=== PATIENT | female | born 1940 | race Caucasian/White ===

== ENCOUNTER 2020-11-10 12:31 | Emergency (ER) | payer OTHER, MEDICARE, BC ==
[~2020-11-10] VITALS: Ht 160 cm; Wt 117.9 kg
[2020-11-10] MEDS ORDERED: Voltaren100 GM TOP (15:06)
[2020-11-10] MEDS ORDERED: CYCL10 PO (15:06)
== END 2020-11-10 15:16 | disposition home or self-care (01) ==
LOC: ER 12:31
DX: M54.42 Lumbago with sciatica, left side (principal); Z88.6 Allergy status to analgesic agent; Z88.5 Allergy status to narcotic agent
CPT/HCPCS: 96372; 99283-25; A9270; J1885

== ENCOUNTER 2020-11-26 12:01 | Inpatient (IN) | payer OTHER ==
[~2020-11-26] VITALS: Ht 160 cm; Wt 123.8 kg
[~2020-11-26 12:01] MED LIST: CYCL10 PO; Voltaren100 GM TOP
[2020-11-26 13:10] LABS: BASOPHILS ABSOLUTE AUTO 0.04 K/mm3 (0.00-0.23); BASOPHILS PERCENT AUTO 0 % (0-2); EOSINOPHILS ABSOLUTE AUTO 0.08 K/mm3 (0.00-0.68); EOSINOPHILS PERCENT AUTO 1 % (0-6); Hematocrit 47.5 % (33.0-51.0); Hemoglobin 15.1 g/dL (11.5-16.0); IMMATURE GRAN ABSOLUTE AUTO 0.08 K/mm3 (0.00-0.10); IMMATURE GRAN PERCENT AUTO 1 % (0-1); LYMPHOCYTES ABSOLUTE AUTO 0.69 K/mm3 (0.84-5.20); LYMPHOCYTES PERCENT AUTO 5 % (21-46); MONOCYTES ABSOLUTE AUTO 0.72 K/mm3 (0.16-1.47); MONOCYTES PERCENT AUTO 5 % (4-13); Mean Corpuscular HGB 29.4 pg (26.0-34.0); Mean Corpuscular HGB Conc 31.8 g/dL (31.5-36.5); Mean Corpuscular Volume 92 fL (80-100); Mean Platelet Volume 9.9 fL (9.1-12.4); NEUTROPHILS PERCENT AUTO 90 % (41-73); Platelet Count 295 K/mm3 (150-400); RDW Coefficient Variation 14.9 % (11.7-14.2); RDW Standard Deviation 51.5 fL (35.1-46.3); Red Blood Cell Count 5.14 M/mm3 (3.80-5.20); White Blood Cell Count 15.41 K/mm3 (4.00-11.30)
[2020-11-26 13:20] LABS: Alanine Aminotransfer (ALT/SGP 29 U/L (12-78); Albumin, Blood 3.2 g/dL (3.4-5.0); Albumin/Globulin Ratio 0.8 (0.8-1.8); Alk Phos 116 U/L (50-136); Anion Gap 5 mmol/L (6-16); Aspartate Aminotrans (AST/SGOT 18 U/L (12-37); Blood Urea Nitrogen 15 mg/dL (8-24); Bun/Creatinine Ratio 22.8 (12.0-20.0); CO2, Blood 26 mmol/L (21-32); Calcium, Blood 8.5 mg/dL (8.5-10.1); Chloride, Blood 110 mmol/L (98-108); Creatinine, Blood 0.66 mg/dL (0.40-1.00); Globulin, Blood 3.8 g/dL (2.2-4.0); Glomerular Filtration Rate >60 (60-); Glucose, Blood 85 mg/dL (70-99); Potassium, Blood 3.7 mmol/L (3.5-5.5); Sodium, Blood 141 mmol/L (136-145)
[2020-11-26] MEDS ORDERED: SYMBICORT 160-4.6 GM INH (13:31)
[2020-11-26] MEDS ORDERED: ALBU2.5V5 NEB (13:31)
[2020-11-26] MEDS ORDERED: FLUO10 PO (13:32)
[2020-11-26] MEDS ORDERED: DABI150C PO (13:32)
[2020-11-26] MEDS ORDERED: EXEM25 PO (13:32)
[2020-11-26] MEDS ORDERED: FURO40 PO (13:33)
[2020-11-26] MEDS ORDERED: METO50ER PO (13:33)
[2020-11-26] MEDS ORDERED: LEVSOD75 PO (13:33)
[2020-11-26] MEDS ORDERED: PRAV20 PO (13:34)
[2020-11-26] MEDS ORDERED: POTA10T PO (13:34)
[2020-11-26] MEDS ORDERED: TRAM50 PO (13:35)
[2020-11-26] MEDS ORDERED: SPIR25 PO (13:35)
[2020-11-26 16:51] LABS: Source, Urine Clean Catch
[2020-11-26 16:56] LABS: Appearance, Urine Hazy (Clear); Bilirubin, Urine Neg (Neg); Blood, Urine 1+ (Neg); Color, Urine Yellow (P-Yellow); Glucose Qualitative, Urine Neg (Neg); Ketones, Urine 1+ (Neg); Leukocyte Esterase, Urine 2+ (Neg); Nitrite, Urine Neg (Neg); Protein, Urine 2+ (Neg); Urobilinogen, Urine NORM (Normal)
[2020-11-26 17:06] LABS: Bacteria Many /hpf; Red Blood Cells, Urine 0-2 /hpf (0-2); Squamous Epithelial Cells Mod /hpf (Few); Transitional Epithelial Cells Rare /hpf (0-Rare)
[2020-11-26] MEDS ORDERED: Voltaren100 GM TOP (17:43)
[2020-11-26] MEDS ORDERED: CYCL10 PO (17:43)
--- NOTE | 2020-11-26 23:10 | NUR ---
PATIENT IS ALERT AND ORIENTATED, ABLE TO MAKE NEEDS KNOWN, ONE PERSON ASSIST TO BEDSIDE COMMODE, PIV IN R-HAND RUNNING DILTIZEM 10MG/HR HEART RATE 118-140'S NOTED INCREASE WITH MOBILITY WITH SOB, INCREASED TO 15MG/HR HR MAINTAINING AT 98-103. PATIENT EXPRESSED THAT SHE HASN'T BEEN TAKING HER MEDICATIONS, RECENTLY MOVED HERE FROM [place] HER SON NADINE LOST THE HOUSE TO MOVE IN WITH [employer]A [employer] FRIEND, CURRENTLY THERE IS SIX PEOPLE LIVING IN THE HOME WITH ONE BATHROOM, FOUR DOGS, AND TWO CATS, BIPOLAR PERSON WHO CAN MAKE THINGS UNCOMFORTABLE BUT NOT CONCERNED FOR HER SAFETY, HIGH FUNCTIONING YOUNGER SON WHO HAS AUTISM. PATIENT LOST HER FIVE MONTHS AGO AND RECENTLY HAD TO PUT HER HUSBANDS DOG DOWN. PATIENT IS VERY ANXIOUS AND RELIES ON HER SON NADINE TO HELP WITH HER TOLIETING NEEDS, SHE USES A WHEELCHAIR AT [employer]. SHE IS CONCERNED ABOUT HER SON WITH ALL THE LOSS OF HOME, FATHER AND DOG WITH HER BEING IN THE HOSPITAL, SHE IS INVOLVED WITH HER EROS AND HAS A HOUSE RN THAT CALLS TO CHECK ON HER. SHE HAS BEEN WAITING FOR HER [facility]CT[facility] HER POSSIBLING NEEDING ASSISTANCE WITH HOUSING AND SHE FEARS SHE MAY NEED TO GO INTO AN [facility]PER[facility] LIVING FACILITY BUT WORRIES WHAT WILL HAPPEN TO HER SON. SHE IS INTERESTED IN GETTING INTO CONTACT WITH [facility] AND STATE THEY WERE WORKING WITH HER ALREADY BUT NOTHING YET ON HOUSING NEEDS. PATIENT SAYS HER WHEELCHAIR BARELY CAN GO THROUGH MANY OF THE DOORWAYS AND SITS IN HER RECLINER MAINLY THE WHOLE TIME, SHE WAS PROVIDED A MATTRESS ON THE FLOOR TO SLEEP ON BUT IT IS OLD AND DIFFICULT FOR HER, SHE ASKED IF SHE COULD REPLACE IT BUT THE PIE CHEF WAS CONCERNED ABOUT GETTING RID OF THE CURRENT MATTRESS, PATIENT IS MORE CALM AFTER REASSURANCE, WILL CONTINUE TO PROVIDE HOLISTIC CARE AND ACTIVE LISTENTING TO DECREASE ANXIETY, RECEIVED A NEW ORDER FOR CPAP PATIENT USES ONE AT HOME, CONTINUOUS POLST OXIMETRY AND HYDOXYZINE 50MG Q8 PRN.
[2020-11-27 04:04] LABS: BASOPHILS ABSOLUTE AUTO 0.04 K/mm3 (0.00-0.23); BASOPHILS PERCENT AUTO 0 % (0-2); EOSINOPHILS ABSOLUTE AUTO 0.24 K/mm3 (0.00-0.68); EOSINOPHILS PERCENT AUTO 2 % (0-6); Hematocrit 44.8 % (33.0-51.0); Hemoglobin 14.5 g/dL (11.5-16.0); IMMATURE GRAN ABSOLUTE AUTO 0.05 K/mm3 (0.00-0.10); IMMATURE GRAN PERCENT AUTO 0 % (0-1); LYMPHOCYTES PERCENT AUTO 6 % (21-46); MONOCYTES ABSOLUTE AUTO 0.79 K/mm3 (0.16-1.47); MONOCYTES PERCENT AUTO 6 % (4-13); Mean Corpuscular HGB 29.5 pg (26.0-34.0); Mean Corpuscular HGB Conc 32.4 g/dL (31.5-36.5); Mean Corpuscular Volume 91 fL (80-100); Mean Platelet Volume 9.5 fL (9.1-12.4); NEUTROPHILS ABSOLUTE AUTO 12.42 K/mm3 (1.96-9.15); NEUTROPHILS PERCENT AUTO 87 % (41-73); Platelet Count 301 K/mm3 (150-400); RDW Coefficient Variation 14.9 % (11.7-14.2); RDW Standard Deviation 50.3 fL (35.1-46.3); Red Blood Cell Count 4.92 M/mm3 (3.80-5.20); White Blood Cell Count 14.34 K/mm3 (4.00-11.30)
[2020-11-27 04:24] LABS: Alanine Aminotransfer (ALT/SGP 30 U/L (12-78); Albumin, Blood 3.1 g/dL (3.4-5.0); Albumin/Globulin Ratio 0.8 (0.8-1.8); Alk Phos 115 U/L (50-136); Anion Gap 6 mmol/L (6-16); Aspartate Aminotrans (AST/SGOT 16 U/L (12-37); Bilirubin, Direct 0.2 mg/dL (0.0-0.3); Bilirubin, Indirect 0.8 mg/dL (0.1-0.7); Blood Urea Nitrogen 12 mg/dL (8-24); Bun/Creatinine Ratio 18.5 (12.0-20.0); CO2, Blood 24 mmol/L (21-32); Calcium, Blood 8.3 mg/dL (8.5-10.1); Chloride, Blood 108 mmol/L (98-108); Creatinine, Blood 0.65 mg/dL (0.40-1.00); Globulin, Blood 3.8 g/dL (2.2-4.0); Glomerular Filtration Rate >60 (60-); Glucose, Blood 114 mg/dL (70-99); Potassium, Blood 3.7 mmol/L (3.5-5.5); Sodium, Blood 138 mmol/L (136-145); Total Protein, Blood 6.9 g/dL (6.4-8.2)
--- NOTE | 2020-11-27 10:04 | NUR ---
PT ALERT AND ORIENTED X4. ON 3 L NASAL CANNULA SATING MID 90'S. REFUSED CPAP HERE, NORMALLY WEARS CPAP AT NIGHT. LUNGS SOUNDING CLEAR AND DIM IN BASES. DYSPNEA ON EXERTION AND WITH TALKING. TELE SHOWING AFIB WITH HR 70-80'S. CARDIZEM DRIP AT 15 UPON SHIFT START. TITRATED DOWN TO 5. NEW ORDERS TO DISCONTINUE CARDIZE, DRIP. PT ON PO METOPROLOL. BP STABLE. BOWEL TONES PRESENT. REDNESS IN GROIN/CASIMIRO AREA. NYSTATIN POWEDER APPLIED. LEFT NIPPLE DISECTION IN HEALING STAGES. YELLOW CRUST THAT IS SUPERFICIAL. LEFT SHOULDER/ARM WITH LYMPHEDEMA, NO OPEN WOUNDS. LEFT ARM WEEPING, DRESSING CHANGED THIS AM. PICTURE IN CHART. ANTIBIOTICS INFUSING. USES WALKER AT [facility]. CALL LIGHT IN REACH. WILL CONTINUE TO MONITOR.
--- NOTE | 2020-11-27 16:45 | NUR ---
TRANSFER: NO ACUTE CHANGES. VANCO INFUSING. VITAL SIGNS STABLE. TRANSFERRED UP TO MEDICAL FLOOR ROOM 363. REPORTED OFF TO RN. PT TAKEN VIA WHEELCHAIR WITH ALL PERSONAL BELONGINGS.
--- NOTE | 2020-11-27 18:26 | NUR ---
PT SITTING AT SIDE OF BED, ALERT AND ORIENTED X4, EATING DINNER. PT MAKES NO COMPLAINTS AT THIS TIME. REMAINS A 1 ASSIST WITH FFW AND BATHRROM PRIV. PT L ARM WAS REWRAPPED FOR THE SECOND TIME THIS SHIFT WEEPING HAD SOAKED THROUGH. PT ON 3L O2 AND SAT ABOVE 90%. PT STATES SHE HAS NOT FELT THIS GOOD IN A FEW WEEKS. IV ABT'S AND EMAR MEDICATIONS THIS SHIFT. BED IN LOW POSITION AND CALL LIGHT WITHIN REACH. STAFF WILL CONTINUE TO MONITOR.
--- NOTE | 2020-11-28 05:35 | NUR ---
PATIENT IS ALERT AND ORIENTED X4, VERY PLEASANT AND COOPERATIVE WITH CARE. SHE GETS EXTREMELY WINDED WITH MINIMAL EXERTION SUCH TALKING, REPOSITIONING OR USING THE BEDSIDE COMMODE. EACH TIME, IT TAKES HER ABOUT 5-6 MINUTES TO FULLY RECOVER. HER 02 SAT REMAIN GREATER THAN 90% WHEN CHECKED DURING THESE EVENTS. LEFT ARM DRESSING DID NOT SATURATE OVERNIGHT, PARTLY BECAUSE IT WAS KEPT ELEVATED ON PILLOWS. UPPER ARM PROXIMAL TO DRESSING STILL HAS THE ORANGE PEEL EFFECT MENTIONED YESTERDAY. MEDICATED ONCE FOR PAIN WITH TRAMADOL FOR ARM AND (CHRONIC) LOW BACK PAIN WITH GOOD RESULT
[2020-11-28] MEDS ORDERED: METO50ER PO (14:12)
[2020-11-28] MEDS ORDERED: ANTIFUNGAL POWD71 GM TOP (14:14)
[2020-11-28] MEDS ORDERED: XARELTO20 MG PO (14:16)
[2020-11-28] MEDS ORDERED: SULTRIDS PO (14:17)
[2020-11-28] MEDS ORDERED: VISBIOME 112.51 EACH PO (14:18)
--- NOTE | 2020-11-28 15:16 | NUR ---
DC NOTE: PT INSTRUCTED ON DC PLAN. [facility] EDUCATED ON MEDICATIONS. PT VU. DC MEDICATIONS [facility]XED TO [facility] PER PT REQUEST. [facility] TO CALL PT TO SET UP AN APPOINTMENT. PER PT JULISSA ALREADY CALLED TO SET UP VISITS. PT SON IN ROOM AT TIME OF DC. PT IV REMOVED, NO S/S OF INFECTION/PHLEBITIS. PT TRANPORTED TO POV VIA WC AND BETZY ZULUAGA ESCORTED TO PT TO VEHICLE.
== END 2020-11-28 15:15 | disposition home health service (06) | DRG 872 ==
LOC: ER 12:01 → ERHOLD 17:17 → PCU 17:17 → MEDS 11-27 15:04
PROVIDERS: Student in an Organized Health Care Education/Training Program; ADMIT Internal Medicine
DX: A41.9 Sepsis, unspecified organism (principal); A28.1 Cat-scratch disease; L03.114 Cellulitis of left upper limb; I48.20 Chronic atrial fibrillation, unspecified; Z68.42 Body mass index [BMI] 45.0-49.9, adult; I10 Essential (primary) hypertension; E03.9 Hypothyroidism, unspecified; Z88.5 Allergy status to narcotic agent; J44.9 Chronic obstructive pulmonary disease, unspecified; E66.01 Morbid (severe) obesity due to excess calories; F32.9 Major depressive disorder, single episode, unspecified; I89.0 Lymphedema, not elsewhere classified; Z98.890 Other specified postprocedural states; Z85.3 Personal history of malignant neoplasm of breast; Z79.899 Other long term (current) drug therapy; Z87.891 Personal history of nicotine dependence; Z84.2 Family history of other diseases of the genitourinary system; Z88.8 Allergy status to other drugs, medicaments and biological substances; Z79.02 Long term (current) use of antithrombotics/antiplatelets; Z90.12 Acquired absence of left breast and nipple; G47.33 Obstructive sleep apnea (adult) (pediatric); Z79.51 Long term (current) use of inhaled steroids
CPT/HCPCS: 36415; 71045; 80048; 80053; 80076; 81001; 83605; 84443; 85025; 87086; 93005; 93010; 94640; 94664; 94760; 94762; 96365; 96366; 96375; 99285-25; A9270; J0690; J0696; J3370; J7030; J7050

== ENCOUNTER 2021-01-04 20:44 | Emergency (ER) | payer OTHER ==
[~2021-01-04] VITALS: Ht 160 cm; Wt 117.9 kg
[~2021-01-04 20:44] MED LIST changes: +ALBU2.5V5 NEB; +ANTIFUNGAL POWD71 GM TOP; +DABI150C PO; +EXEM25 PO; +FLUO10 PO; +FURO40 PO; +LEVSOD75 PO; +METO50ER PO; +POTA10T PO; +PRAV20 PO; +SPIR25 PO; +SULTRIDS PO; +SYMBICORT 160-4.6 GM INH; +TRAM50 PO; +VISBIOME 112.51 EACH PO; +XARELTO20 MG PO
[2021-01-04 21:10] LABS: BASOPHILS ABSOLUTE AUTO 0.01 K/mm3 (0.00-0.23); BASOPHILS PERCENT AUTO 0 % (0-2); EOSINOPHILS ABSOLUTE AUTO 0.01 K/mm3 (0.00-0.68); EOSINOPHILS PERCENT AUTO 0 % (0-6); Hematocrit 44.2 % (33.0-51.0); Hemoglobin 14.3 g/dL (11.5-16.0); IMMATURE GRAN ABSOLUTE AUTO 0.03 K/mm3 (0.00-0.10); IMMATURE GRAN PERCENT AUTO 0 % (0-1); LYMPHOCYTES PERCENT AUTO 12 % (21-46); MONOCYTES ABSOLUTE AUTO 0.49 K/mm3 (0.16-1.47); MONOCYTES PERCENT AUTO 7 % (4-13); Mean Corpuscular HGB 29.2 pg (26.0-34.0); Mean Corpuscular HGB Conc 32.4 g/dL (31.5-36.5); Mean Corpuscular Volume 90 fL (80-100); Mean Platelet Volume 9.1 fL (9.1-12.4); NEUTROPHILS ABSOLUTE AUTO 5.57 K/mm3 (1.96-9.15); NEUTROPHILS PERCENT AUTO 81 % (41-73); Platelet Count 292 K/mm3 (150-400); RDW Coefficient Variation 15.6 % (11.7-14.2); RDW Standard Deviation 51.7 fL (35.1-46.3); White Blood Cell Count 6.91 K/mm3 (4.00-11.30)
[2021-01-04 21:36] LABS: Alanine Aminotransfer (ALT/SGP 29 U/L (12-78); Albumin, Blood 3.1 g/dL (3.4-5.0); Albumin/Globulin Ratio 0.8 (0.8-1.8); Alk Phos 113 U/L (50-136); Anion Gap 10 mmol/L (6-16); Aspartate Aminotrans (AST/SGOT 26 U/L (12-37); Bilirubin, Total 0.7 mg/dL (0.1-1.0); Blood Urea Nitrogen 9 mg/dL (8-24); Bun/Creatinine Ratio 14.3 (12.0-20.0); CO2, Blood 23 mmol/L (21-32); Calcium, Blood 7.9 mg/dL (8.5-10.1); Chloride, Blood 105 mmol/L (98-108); Creatinine, Blood 0.63 mg/dL (0.40-1.00); Globulin, Blood 4.1 g/dL (2.2-4.0); Glomerular Filtration Rate >60 (60-); Glucose, Blood 114 mg/dL (70-99); Potassium, Blood 3.7 mmol/L (3.5-5.5); Sodium, Blood 138 mmol/L (136-145); Total Protein, Blood 7.2 g/dL (6.4-8.2); Troponin I <0.015 ng/mL (0.000-0.040)
[2021-01-05 00:42] LABS: SARS-Cov-2 (COVID-19) PCR, MMC POSITIVE (NEGATIVE)
[2021-01-05] MEDS ORDERED: Prednisone50 MG PO (01:20)
== END 2021-01-05 01:30 | disposition home or self-care (01) ==
LOC: ER 20:44
PROVIDERS: Physician Assistant; Student in an Organized Health Care Education/Training Program
DX: U07.1 COVID-19 (principal); I48.91 Unspecified atrial fibrillation; J44.9 Chronic obstructive pulmonary disease, unspecified; Z88.5 Allergy status to narcotic agent; Z79.899 Other long term (current) drug therapy; Z87.891 Personal history of nicotine dependence
CPT/HCPCS: 36415; 71045; 80053; 83880; 84484; 85025; 93005; 93010; 94640; 96374; 99285-25; J7512; U0004

== ENCOUNTER 2022-10-07 13:10 | Inpatient (IN) | payer OTHER ==
[~2022-10-07] VITALS: Ht 160 cm; Wt 111.0 kg
[~2022-10-07 13:10] MED LIST changes: +Prednisone50 MG PO
[2022-10-07 15:27] LABS: BASOPHILS ABSOLUTE AUTO 0.04 K/mm3 (0.00-0.23); BASOPHILS PERCENT AUTO 0 % (0-2); EOSINOPHILS PERCENT AUTO 1 % (0-6); Hematocrit 50.3 % (33.0-51.0); IMMATURE GRAN ABSOLUTE AUTO 0.03 K/mm3 (0.00-0.10); IMMATURE GRAN PERCENT AUTO 0 % (0-1); LYMPHOCYTES ABSOLUTE AUTO 0.99 K/mm3 (0.84-5.20); LYMPHOCYTES PERCENT AUTO 10 % (21-46); MONOCYTES ABSOLUTE AUTO 0.68 K/mm3 (0.16-1.47); MONOCYTES PERCENT AUTO 7 % (4-13); Mean Corpuscular HGB 28.7 pg (26.0-34.0); Mean Corpuscular HGB Conc 31.8 g/dL (31.5-36.5); Mean Corpuscular Volume 90 fL (80-100); Mean Platelet Volume 10.3 fL (9.1-12.4); NEUTROPHILS ABSOLUTE AUTO 8.35 K/mm3 (1.96-9.15); NEUTROPHILS PERCENT AUTO 82 % (41-73); Platelet Count 343 K/mm3 (150-400); RDW Coefficient Variation 15.1 % (11.7-14.2); Red Blood Cell Count 5.57 M/mm3 (3.80-5.20); White Blood Cell Count 10.19 K/mm3 (4.00-11.30)
[2022-10-07 15:48] LABS: Albumin, Blood 3.6 g/dL (3.4-5.0); Bilirubin, Total 1.2 mg/dL (0.1-1.0); Bun/Creatinine Ratio 25.5 (12.0-20.0); Creatinine, Blood 0.59 mg/dL (0.40-1.00); Globulin, Blood 3.7 g/dL (2.2-4.0); Total Protein, Blood 7.3 g/dL (6.4-8.2)
[2022-10-07 19:21] VITALS: BP 137/93
[2022-10-07 23:17] VITALS: BP 133/76
[2022-10-08 03:48] VITALS: BP 125/85
[2022-10-08 03:50] LABS: BASOPHILS ABSOLUTE AUTO 0.01 K/mm3 (0.00-0.23); BASOPHILS PERCENT AUTO 0 % (0-2); EOSINOPHILS PERCENT AUTO 0 % (0-6); Hematocrit 47.4 % (33.0-51.0); Hemoglobin 14.9 g/dL (11.5-16.0); IMMATURE GRAN ABSOLUTE AUTO 0.04 K/mm3 (0.00-0.10); IMMATURE GRAN PERCENT AUTO 0 % (0-1); LYMPHOCYTES ABSOLUTE AUTO 0.39 K/mm3 (0.84-5.20); LYMPHOCYTES PERCENT AUTO 4 % (21-46); MONOCYTES ABSOLUTE AUTO 0.35 K/mm3 (0.16-1.47); MONOCYTES PERCENT AUTO 3 % (4-13); Mean Corpuscular HGB 28.4 pg (26.0-34.0); Mean Corpuscular HGB Conc 31.4 g/dL (31.5-36.5); Mean Corpuscular Volume 91 fL (80-100); NEUTROPHILS ABSOLUTE AUTO 10.17 K/mm3 (1.96-9.15); NEUTROPHILS PERCENT AUTO 93 % (41-73); Platelet Count 324 K/mm3 (150-400); RDW Standard Deviation 49.6 fL (35.1-46.3); Red Blood Cell Count 5.24 M/mm3 (3.80-5.20); White Blood Cell Count 10.96 K/mm3 (4.00-11.30)
[2022-10-08 04:16] LABS: Albumin, Blood 3.2 g/dL (3.4-5.0); Bilirubin, Total 0.7 mg/dL (0.1-1.0); Bun/Creatinine Ratio 30.4 (12.0-20.0); Calcium, Blood 8.5 mg/dL (8.5-10.1); Creatinine, Blood 0.63 mg/dL (0.40-1.00); Globulin, Blood 3.1 g/dL (2.2-4.0); Potassium, Blood 4.3 mmol/L (3.5-5.5); Total Protein, Blood 6.3 g/dL (6.4-8.2)
--- NOTE | 2022-10-08 05:36 | NUR ---
Shift Summary PT WAS A NEW ADMIT THIS SHIFT FOR AFIB RVR. HE WAS ADMITTED ON A CARDIZEM GTT AT 10 AND IT IS CURRENTLY AT 5. HER HR HAS BEEN SUSTAINING 90 S-110 S. BP STABLE. THE PT CAME UP ON 2L NC AND HAS BEEN ON THE CPAP WHILE SLEEPING. SP02 >90%. PT IS ABLE TO MAKE HER NEEDS KNOWN AND CALLS APPROPRIATELY. PT IS VERY SOB W/ EXERTION. SHE HAS RECEIVED BREATHING TREATMENTS BUT WHEN SHE GETS WORKED UP FROM ANXIETY THEY DYSPNEA INCREASES.THE PT IS ABLE TO DISTRACT HERSELF TO CALM DOWN. SHE HAS A PURWICK NOW SET UP TO SUCTION DUE TO THE URGENCY OF URINATION CAUSED BY LASIX. PURWICK WORKING APPROPRIATELY. NO ACUTE EVENTS OVER NIGHT. BED IN LOW, CALL LIGHT IN REACH, SEE NOTES FOR ANY UPDATES.
[2022-10-08] MEDS ORDERED: DOC250 PO (06:20)
[2022-10-08 08:19] VITALS: BP 107/56
[2022-10-08] MEDS ORDERED: THERA-D2000 UNIT PO (09:37)
[2022-10-08] MEDS ORDERED: TIOT18 INH (09:39)
[2022-10-08 11:53] VITALS: BP 111/73
--- NOTE | 2022-10-08 14:48 | NUR ---
Upon receiving a referral for spiritual care, I visit the patient. She is quite a character and laughs often. She tells many stories and encourages herself as she reflects on all that she has overcome in life. She tells me that she can't manage living alone anymore and is hopeful to be placed in a SNF. She shares about about her stephani, attendance at the [facility] [place] and her relliance on prayer. I provide therapeutic listening and prayer. Patient responded well and showed signs of an elevated mood.
[2022-10-08 15:23] VITALS: BP 121/75
--- NOTE | 2022-10-08 18:09 | NUR ---
END OF SHIFT PT A&O X4. 1 PERSON ASSIST W/ FWW FROM BED TO BSC OR CHAIR. PT VSS. SPO2 > 92% ON 1-3L NC. PT ANXIOUS W/ SOB BUT SPO2 REMAINING > 92%. PT ABLE TO BE COACHED THROUGH DEEP BREATHING & RETURN RESPIRATIONS TO HER EVEN/UNLABORED BASELINE. MONITOR SHOWING AFIB, HR 80s-110s. CARDIZEM GTT DC'd THIS AM. PUREWICK IN PLACE D/T PT URGENCY TO VOID. PUREWICK DRAINING DARK YELLOW URINE. PT W/ REDNESS IN SKIN FOLDS, POWDER IN PLACE.
[2022-10-08 19:11] VITALS: BP 114/82
[2022-10-08 23:26] VITALS: BP 100/65
[2022-10-09 02:54] VITALS: BP 108/63
[2022-10-09 04:40] LABS: Bun/Creatinine Ratio 39.6 (12.0-20.0); Calcium, Blood 8.4 mg/dL (8.5-10.1); Creatinine, Blood 0.63 mg/dL (0.40-1.00); Potassium, Blood 3.8 mmol/L (3.5-5.5)
--- NOTE | 2022-10-09 06:04 | NUR ---
Shift Summary PT IS A&OX4, CALLS APPROPRIATELY, AND CAN MAKE HER NEEDS KNOWN. ON TELE SHE HAS BEEN AFIB 80 S-100 S. BP STABLE. WHEN AWAKE THE PT HAS BEEN ON 2L NC AND WHEN ASLEEP SHE IS ON HER CPAP. HER SP02 REMAINS >93%. PT IS LESS SOB THIS SHIFT, BUT STILL HAS DYSPNEA W/ EXERTION. NO ACUTE EVENTS. BED IN LOW, CALL LIGHT IN REACH, SEE NOTES FOR ANY UPDATES. NO ACUTE EVENTS OVE
[2022-10-09 08:53] VITALS: BP 119/88
[2022-10-09 11:38] VITALS: BP 106/78
[2022-10-09 16:58] VITALS: BP 113/84
--- NOTE | 2022-10-09 17:11 | NUR ---
END OF SHIFT PT A&O X4. VSS. SPO2 > 92% ON 1L NC. MONITOR SHOWING AFIB, HR 70s-110s. PT SOB W/EXCESSIVE TALKING OR EXERTION. PT 1 PERSON ASSIST OOB. NO EVENTS THIS SHIFT.
[2022-10-09 20:42] VITALS: BP 115/86
[2022-10-10 00:46] VITALS: BP 104/74
[2022-10-10 03:37] VITALS: BP 114/78
[2022-10-10 05:10] LABS: Bun/Creatinine Ratio 43.7 (12.0-20.0); Calcium, Blood 8.6 mg/dL (8.5-10.1); Creatinine, Blood 0.66 mg/dL (0.40-1.00); Potassium, Blood 3.5 mmol/L (3.5-5.5)
--- NOTE | 2022-10-10 06:27 | NUR ---
PASSENGER SERVICE MANAGER SUMMARY ASSUMED CARE OF THE PT AT 1900. SHE IS ALERT AND ORIENTED AND FOLLOWS DIRECTIONS. PT GIVEN ONE DOSE OF TYLENOL AT BEDTIME FOR PAIN. PUREWICK IN PLACE DUE TO DIURETICS. EDEMA APPEARS IMPROVED ACCORDING TO THE PT. SHE WAS PUT ON HER CPAP AT HS. PT HAS BEEN AFIB ON TELE BUT RATE IN THE 80S. SATURATIONS HAVE REMAINED MID TO HIGH 90S. PT REQUESTING TO GO HOME BUT IS CONCERNED ABOUT GETTING MORE HELP AT HOME.
[2022-10-10 07:21] VITALS: BP 109/74
--- NOTE | 2022-10-10 12:35 | NUR ---
TRANSFER PT A&O X4. VSS. SPO2 > 92% ON 1L NC. MONITOR SHOWING AFIB, HR 70s-110s. PT MADE MEDICAL NO TELEMETRY STATUS. BEDSIDE REPORT GIVEN TO ACCEPTING SURGICAL FLOOR RN UPON PT TRANSFER TO 208. PT TAKEN TO BY WHEELCHAIR, WITH BELONGINGS & CPAP MACHINE.
[2022-10-10 14:27] VITALS: BP 113/79
--- NOTE | 2022-10-10 16:22 | NUR ---
SHIFT SUMMARY PT [id number], IND IN ROOM TO BSC. NEEDS ASSISTANCE BACK TO BED R/T LYMPHEDEMA IN LEFT ARM. SHE HAS BEEN TRYING TO SLEEP DURING SHIFT. SHE REPORTS NO SLEEP "THE LAST FEW NIGHTS" AND REQUESTED THE LIGHTS TURNED OFF. MEDICATED PER EMAR FOR BACK PAIN. CURRENTLY TOLERATING DIET WELL DENIES FURTHER NEEDS.
[2022-10-10 19:30] VITALS: BP 120/94
[2022-10-11 04:20] VITALS: BP 109/76
[2022-10-11 05:36] LABS: Bun/Creatinine Ratio 45.5 (12.0-20.0); Calcium, Blood 8.6 mg/dL (8.5-10.1); Creatinine, Blood 0.59 mg/dL (0.40-1.00); Potassium, Blood 3.4 mmol/L (3.5-5.5)
[2022-10-11 07:18] VITALS: BP 102/65
--- NOTE | 2022-10-11 07:18 | NUR ---
SHIFT SUMMARY NO ACUTE CHANGES THROUGH THE NIGHT, PT C/O ANXIETY & UNRELIEVED PAIN, HOSPITALIST WAS NOTIFIED, 25-50 MCG IV FENT ORDERED FOR PAIN, PT REFUSED & STATED SHE WAS "SCARED" TO TAKE IT. EDUCATION WAS PROVIDED, ONE TIME DOSE OF 0.5 MG PO ATIVAN WAS GIVEN, PT WAS ABLE TO REST COMFORTABLY AFTERWARDS. LUNG SOUNDS UNCHANGED FROM INITIAL ASSESSMENT, PT ON 3L O2 VIA NC PER HER REQUEST, UP FROM 2L. VOIDING WNL, SBA TO BSC, VSS, TOLERATING PO INTAKE. REPORT GIVEN TO DAY RN, CALL LIGHT IN REACH
[2022-10-11] MEDS ORDERED: Atarax10 MG PO (11:23)
--- NOTE | 2022-10-11 12:26 | NUR ---
DISCHARGE NOTE: PATIENT AND PATIENTS SON WERE EDUCATED ON DISCHARGE INSTRUCTIONS. BOTH VERBALIZED UNDERSTANDING OF INSTRUCTIONS AND HAD NO FURTHER QUESTIONS AT THIS TIME. IV WAS TAKEN OUT AND WNL. PERSCRIPTIONS WERE FAXED BY PRIMARY NURSE GINO EARLIER THIS SHIFT. PATIENT IS A&OX4. VS ARE WNL AND IS ON RA. PATIENT IS DRESSED AND HAS PERSONAL ITEMS IN THE ROOM GATHERED IN BAGS. SHE IS TOLERATING PO INTAKE AND IS VOIDING. PATIENT WAS A SBA FROM THE BED TO THE WHEELCHAIR. PATIENT WAS JUST WHEELCHAIRED OUT TO HER SONS CAR TO BE TAKEN HOME.
== END 2022-10-11 12:32 | disposition home or self-care (01) | DRG 308 ==
LOC: ER 13:10 → PCU 17:21 → SURS 10-10 12:33
PROVIDERS: Emergency Medicine; Internal Medicine; Nurse Practitioner Acute Care; ADMIT Internal Medicine
PROC: 5A09357 Assistance with Respiratory Ventilation, Less than 24 Consecutive Hours, Continuous Positive Airway Pressure (ICD-10-PCS; principal; 2022-10-07)
DX: I48.91 Unspecified atrial fibrillation (principal); J18.9 Pneumonia, unspecified organism; J96.01 Acute respiratory failure with hypoxia; Z68.41 Body mass index [BMI] 40.0-44.9, adult; J44.0 Chronic obstructive pulmonary disease with (acute) lower respiratory infection; E03.9 Hypothyroidism, unspecified; G47.33 Obstructive sleep apnea (adult) (pediatric); K43.9 Ventral hernia without obstruction or gangrene; I50.9 Heart failure, unspecified; I89.0 Lymphedema, not elsewhere classified; E66.01 Morbid (severe) obesity due to excess calories; E78.5 Hyperlipidemia, unspecified; F32.A Depression, unspecified; F41.9 Anxiety disorder, unspecified; Z88.5 Allergy status to narcotic agent; Z79.51 Long term (current) use of inhaled steroids; Z79.899 Other long term (current) drug therapy; Z79.01 Long term (current) use of anticoagulants; Z85.3 Personal history of malignant neoplasm of breast; Z90.10 Acquired absence of unspecified breast and nipple; Z98.890 Other specified postprocedural states; Z87.891 Personal history of nicotine dependence; Z99.89 Dependence on other enabling machines and devices; Z79.02 Long term (current) use of antithrombotics/antiplatelets
CPT/HCPCS: 36415; 71045; 80048; 80053; 83735; 83880; 84145; 84443; 84484; 85025; 85379; 93005; 93010; 93306; 94640; 94660; 94664; 94761; 94762; 96365; 96366; 96375; 96376; 97110; 97162; 97530; 99285-25; A9270; G0378; J0696; J1940; J2930

== ENCOUNTER 2022-12-29 20:59 | Emergency (ER) | payer OTHER ==
[~2022-12-29] VITALS: Ht 160 cm; Wt 113.4 kg
[~2022-12-29 20:59] MED LIST changes: +Atarax10 MG PO; +DOC250 PO; +JARDIANCE10 MG PO; +NYSTOP15 GM TOP; +THERA-D2000 UNIT PO; +TIOT18 INH
[2022-12-29 22:00] LABS: BASOPHILS ABSOLUTE AUTO 0.06 K/mm3 (0.00-0.23); BASOPHILS PERCENT AUTO 1 % (0-2); EOSINOPHILS PERCENT AUTO 2 % (0-6); Hemoglobin 16.3 g/dL (11.5-16.0); IMMATURE GRAN ABSOLUTE AUTO 0.08 K/mm3 (0.00-0.10); IMMATURE GRAN PERCENT AUTO 1 % (0-1); LYMPHOCYTES ABSOLUTE AUTO 1.27 K/mm3 (0.84-5.20); LYMPHOCYTES PERCENT AUTO 12 % (21-46); MONOCYTES ABSOLUTE AUTO 0.79 K/mm3 (0.16-1.47); MONOCYTES PERCENT AUTO 7 % (4-13); Mean Corpuscular HGB 29.4 pg (26.0-34.0); Mean Corpuscular HGB Conc 31.3 g/dL (31.5-36.5); Mean Corpuscular Volume 94 fL (80-100); Mean Platelet Volume 10.3 fL (9.1-12.4); NEUTROPHILS ABSOLUTE AUTO 8.47 K/mm3 (1.96-9.15); NEUTROPHILS PERCENT AUTO 78 % (41-73); Platelet Count 270 K/mm3 (150-400); RDW Coefficient Variation 14.8 % (11.7-14.2); RDW Standard Deviation 51.2 fL (35.1-46.3); Red Blood Cell Count 5.55 M/mm3 (3.80-5.20); White Blood Cell Count 10.87 K/mm3 (4.00-11.30)
[2022-12-29 22:27] LABS: Albumin, Blood 3.3 g/dL (3.4-5.0); Bilirubin, Total 0.6 mg/dL (0.1-1.0); Bun/Creatinine Ratio 24.3 (12.0-20.0); Calcium, Blood 8.4 mg/dL (8.5-10.1); Creatinine, Blood 0.82 mg/dL (0.40-1.00); Globulin, Blood 3.4 g/dL (2.2-4.0); Potassium, Blood 4.3 mmol/L (3.5-5.5); Total Protein, Blood 6.7 g/dL (6.4-8.2)
[2022-12-29 23:45] LABS: International Normalized Ratio 1.11; Prothrombin Time Results 11.6 Sec (9.7-11.5)
[2022-12-30 01:20] LABS: Base Excess Venous 2.7 mmol/L; Bicarbonate Venous 26.4 mmol/L (24.0-30.0); PCO2 Venous 41.9 mmHg (38-42); pH Blood Venous 7.42 (7.34-7.37)
[2022-12-30] MEDS ORDERED: LORA.5 PO (02:13)
[2022-12-30 02:15] VITALS: BP 115/76
== END 2022-12-30 02:35 | disposition home or self-care (01) ==
LOC: ER 20:59
PROVIDERS: Student in an Organized Health Care Education/Training Program
DX: I50.30 Unspecified diastolic (congestive) heart failure (principal); F45.8 Other somatoform disorders; F41.9 Anxiety disorder, unspecified; Z88.5 Allergy status to narcotic agent; Z79.899 Other long term (current) drug therapy; Z85.3 Personal history of malignant neoplasm of breast; J44.9 Chronic obstructive pulmonary disease, unspecified; I48.91 Unspecified atrial fibrillation
CPT/HCPCS: 36415; 71046; 80053; 82803; 83735; 83880; 84484; 85025; 85610; 96374; 96375; 99285-25; J1940; J2060

== ENCOUNTER 2023-02-01 18:12 | Inpatient (IN) | payer OTHER ==
[~2023-02-01] VITALS: Ht 160 cm; Wt 108.9 kg
[~2023-02-01 18:12] MED LIST changes: -ANTIFUNGAL POWD71 GM TOP; +LORA.5 PO; +MICONAZOLE NITR85 GM TOP; -PRAV20 PO; +Pravastatin Sod40 MG PO; +STIOLTO RESPIMAT4 G1 INH; -TIOT18 INH
[2023-02-01 19:07] LABS: BASOPHILS ABSOLUTE AUTO 0.03 K/mm3 (0.00-0.23); BASOPHILS PERCENT AUTO 0 % (0-2); EOSINOPHILS ABSOLUTE AUTO 0.08 K/mm3 (0.00-0.68); EOSINOPHILS PERCENT AUTO 1 % (0-6); Hematocrit 45.8 % (33.0-51.0); Hemoglobin 14.9 g/dL (11.5-16.0); IMMATURE GRAN ABSOLUTE AUTO 0.07 K/mm3 (0.00-0.10); IMMATURE GRAN PERCENT AUTO 1 % (0-1); LYMPHOCYTES ABSOLUTE AUTO 0.82 K/mm3 (0.84-5.20); LYMPHOCYTES PERCENT AUTO 7 % (21-46); MONOCYTES PERCENT AUTO 5 % (4-13); Mean Corpuscular HGB 29.4 pg (26.0-34.0); Mean Corpuscular HGB Conc 32.5 g/dL (31.5-36.5); Mean Corpuscular Volume 90 fL (80-100); Mean Platelet Volume 9.4 fL (9.1-12.4); NEUTROPHILS ABSOLUTE AUTO 9.71 K/mm3 (1.96-9.15); NEUTROPHILS PERCENT AUTO 86 % (41-73); Platelet Count 366 K/mm3 (150-400); RDW Coefficient Variation 14.9 % (11.7-14.2); RDW Standard Deviation 48.9 fL (35.1-46.3); Red Blood Cell Count 5.07 M/mm3 (3.80-5.20); White Blood Cell Count 11.31 K/mm3 (4.00-11.30)
[2023-02-01 19:26] LABS: Albumin, Blood 3.4 g/dL (3.4-5.0); Albumin/Globulin Ratio 0.9 (0.8-1.8); Bilirubin, Total 0.4 mg/dL (0.1-1.0); Bun/Creatinine Ratio 32.5 (12.0-20.0); Calcium, Blood 8.6 mg/dL (8.5-10.1); Creatinine, Blood 0.59 mg/dL (0.40-1.00); Globulin, Blood 3.7 g/dL (2.2-4.0); Potassium, Blood 3.6 mmol/L (3.5-5.5); Total Protein, Blood 7.1 g/dL (6.4-8.2)
[2023-02-01 20:07] LABS: International Normalized Ratio 1.11; Prothrombin Time Results 11.6 Sec (9.7-11.5)
[2023-02-02 01:13] LABS: Influenza A, PCR NEGATIVE (NEGATIVE); Influenza B, PCR NEGATIVE (NEGATIVE); Resp Syncytial Virus, PCR NEGATIVE (NEGATIVE); SARS-Cov-2 (COVID-19) PCR, MMC NEGATIVE (NEGATIVE)
[2023-02-02 02:32] VITALS: BP 116/79
[2023-02-02] MEDS ORDERED: ACET500 PO (03:14)
[2023-02-02] MEDS ORDERED: ALBU90OI INH (03:14)
[2023-02-02] MEDS ORDERED: ASMANEX220 M14 INH (03:19)
[2023-02-02] MEDS ORDERED: MIRALAX17 GM PO (03:19)
[2023-02-02 05:09] LABS: Hemoglobin 15.3 g/dL (11.5-16.0); Mean Corpuscular HGB 28.9 pg (26.0-34.0); Mean Corpuscular HGB Conc 31.9 g/dL (31.5-36.5); Mean Corpuscular Volume 91 fL (80-100); Mean Platelet Volume 9.7 fL (9.1-12.4); Platelet Count 336 K/mm3 (150-400); RDW Coefficient Variation 14.8 % (11.7-14.2); RDW Standard Deviation 48.8 fL (35.1-46.3); White Blood Cell Count 11.12 K/mm3 (4.00-11.30)
--- NOTE | 2023-02-02 05:14 | NUR ---
SHIFT SUMMARY PATIENT ARRIVED TO UNIT FROM THE ED AT 02:30. ORIENTED PATIENT TO UNIT, ROOM AND CALL LIGHT FUNCTIONS. IS A/Ox4, PLEASANT/COOPERATIVE. STATES 3/10 CHRONIC RIGHT HIP PAIN, WORSE WHEN WALKING. C/O SEVERE SOB/DIFFICULTY BREATHING WITH EXERTION. REQUIRES 1 ASSIST TO STAND/PIVOT TO BSC. ON TELE, CHRONIC AFIB IN 90 TO 100s. SPO2 MAINTAINING MID 90s ON 2L VIA NC. NO ACUTE CHANGES SINCE ADMISSION. BED LOCKED AND IN LOWEST POSITION, CALL LIGHT WITHIN REACH.
[2023-02-02 05:19] LABS: International Normalized Ratio 1.06; Prothrombin Time Results 11.1 Sec (9.7-11.5)
[2023-02-02 05:42] LABS: Bun/Creatinine Ratio 30.2 (12.0-20.0); Calcium, Blood 8.5 mg/dL (8.5-10.1); Creatinine, Blood 0.56 mg/dL (0.40-1.00); Potassium, Blood 4.3 mmol/L (3.5-5.5)
[2023-02-02 07:40] VITALS: BP 109/51
[2023-02-02 09:47] LABS: Automated BF RBC Count 0.002 M/mm3 (0-0); Automated BF WBC Count 0.488 K/mm3 (0-999)
[2023-02-02 10:00] LABS: Body Fluid WBC Count 488 /mm3 (0-999); RBC Count, Body Fluid 2000 /mm3 (0-0)
[2023-02-02 10:03] LABS: Lactate Dehydrogenase, Body Fl 88 U/L; Protein, Body Fluid 3.8 g/dL
[2023-02-02 10:31] LABS: Appearance, Body Fluid Hazy (Clear); Color, Body Fluid Yellow (None-Yellow)
[2023-02-02 10:51] LABS: Total Cell Count, Body Fluid 100
[2023-02-02 15:39] VITALS: BP 87/64
[2023-02-02 17:06] VITALS: BP 111/72
--- NOTE | 2023-02-02 17:34 | NUR ---
SHIFT SUMMARY PT HAD PARACENTESIS COMPLETED THIS MORNING. TOLERATED WELL. MEDICATED FOR HIP PAIN TWICE THIS SHIFT. PT UP TO CHAIR AFTER LUNCH FOR A FEW HOURS. PT C/O LEG CRAMPS TODAY. WARM PACK PROVIDED FOR RELIEF. YEASTY ABD FOLD/GROIN TREATED WITH MICONAZOLE POWDER TODAY. O2 TITRATED DOWN TO 1L O2 VIA NC. PT DID DESAT WHILE RESTING ON RA TO 89%. NO OTHER ACUTE CHANGES IN ASSESSMENT AT THIS TIME. VS REVIEWED. CALL LIGHT IN REACH. DENIES OTHER NEEDS AT THIS TIME.
[2023-02-02 19:29] VITALS: BP 105/59
[2023-02-03 05:06] LABS: BASOPHILS ABSOLUTE AUTO 0.03 K/mm3 (0.00-0.23); BASOPHILS PERCENT AUTO 0 % (0-2); EOSINOPHILS ABSOLUTE AUTO 0.08 K/mm3 (0.00-0.68); EOSINOPHILS PERCENT AUTO 1 % (0-6); Hematocrit 45.4 % (33.0-51.0); Hemoglobin 14.3 g/dL (11.5-16.0); IMMATURE GRAN ABSOLUTE AUTO 0.06 K/mm3 (0.00-0.10); IMMATURE GRAN PERCENT AUTO 1 % (0-1); LYMPHOCYTES ABSOLUTE AUTO 0.95 K/mm3 (0.84-5.20); LYMPHOCYTES PERCENT AUTO 9 % (21-46); MONOCYTES ABSOLUTE AUTO 0.84 K/mm3 (0.16-1.47); MONOCYTES PERCENT AUTO 8 % (4-13); Mean Corpuscular HGB 29.2 pg (26.0-34.0); Mean Corpuscular HGB Conc 31.5 g/dL (31.5-36.5); Mean Corpuscular Volume 93 fL (80-100); Mean Platelet Volume 9.6 fL (9.1-12.4); NEUTROPHILS ABSOLUTE AUTO 9.28 K/mm3 (1.96-9.15); NEUTROPHILS PERCENT AUTO 83 % (41-73); Platelet Count 334 K/mm3 (150-400); RDW Coefficient Variation 14.7 % (11.7-14.2); RDW Standard Deviation 50.4 fL (35.1-46.3); White Blood Cell Count 11.24 K/mm3 (4.00-11.30)
[2023-02-03 05:28] LABS: Bun/Creatinine Ratio 36.7 (12.0-20.0); Calcium, Blood 8.4 mg/dL (8.5-10.1); Creatinine, Blood 0.71 mg/dL (0.40-1.00); Potassium, Blood 3.9 mmol/L (3.5-5.5)
--- NOTE | 2023-02-03 06:13 | NUR ---
SHIFT SUMMARY PATIENT A/Ox4, PLEASANT/COOPERATIVE. WITHOUT C/O PAIN AT TIME OF ASSESSMENT. RECEIVED PRN TYLENOL AT 2AM FOR C/O HEADACHE AND LUMBAR PAIN, TOLERATED WELL. EXPRESSED INCREASED ANXIETY AND FRUSTRATION AT NOT BEING ABLE TO RECEIVED ADDITIONAL TYLENOL BEFORE IT IS DUE TO BE AVAILABLE. PATIENT REQUESTED AND RECEIVED PRN ATIVAN FOR INCREASED ANXIETY, TOLERATED WELL. NO C/O SOB NOR DIFFICULTY BREATHING THIS SHIFT. NO ACUTE CHANGES NOTED OVERNIGHT. BED LOCKED AND IN LOWEST POSITION, CALL LIGHT WITHIN REACH.
[2023-02-03 07:52] VITALS: BP 91/72
[2023-02-03 14:57] VITALS: BP 85/56
--- NOTE | 2023-02-03 18:20 | NUR ---
SHIFT SUMMARY A&O X 4. BP'S ARE SOFT. HAVE BEEN TRENDING SOFT SINCE HOSPITALIZATION. IS ON LASIX, ALDACTONE & METOPROLOL. DID HOLD MORNING DOSE OF METOPROLOL FOR SBP <100. AFTERNOON SBP 85. PT STATES SHE IS AWARE HER BP IS LOW, DENIES LIGHTHEADEDNESS, DIZZINESS & WEAKNESS ASSOC WITH LOW BP. WEAKNESS SHE IS AWARE IS FROM DECONDITIONING. IS 1 PERSON ASSIST FROM BED TO CH & BSC. PUREWICK USED FOR URINATION AT TIMES, OTHERWISE USES BSC. 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 HAS SAT UP IN THE CHAIR FOR ALL MEALS. APPETITE IS GOOD. IS PLEASANT & COOPERATIVE WITH ALL CARE. PLAN IS FOR POSSIBLE PLACEMENT [facility]. PT IS A VET.
[2023-02-03 19:46] VITALS: BP 104/72
[2023-02-04 02:15] VITALS: BP 107/82
--- NOTE | 2023-02-04 04:14 | NUR ---
SHIFT SUMMARY *SHEKHAR* WAS ALERT AND FULLY ORIENTED THIS SHIFT. UPON ASSESSMENT HER IV WAS INFILTRATED, LEAKING, AND INFLAMED. I PULLED THE IV AND PLACED A NEW ONE ON THE SAME ARM, NEW IV FLUSHES AND WORKS WELL. EVENING METOPROLOL WAS HELD D/T SOFT BP. PT BECAME NAUSIOUS AND STARTED DRY HEAVING EARLY THIS MORNING, WAS MEDICATED PER EMAR. SHE IS CURRENTLY RESTING IN BED WITH THE CALL LIGHT IN REACH.
[2023-02-04 05:33] LABS: Bun/Creatinine Ratio 38.5 (12.0-20.0); Calcium, Blood 8.5 mg/dL (8.5-10.1); Creatinine, Blood 0.75 mg/dL (0.40-1.00); Magnesium, Blood 2.2 mg/dL (1.6-2.4); Potassium, Blood 3.8 mmol/L (3.5-5.5)
[2023-02-04 08:55] VITALS: BP 115/57
[2023-02-04] MEDS ORDERED: SPIR25 PO (10:49)
[2023-02-04] MEDS ORDERED: SOAANZ40 M1 PO (10:49)
--- NOTE | 2023-02-04 13:08 | NUR ---
DISCHARGE MS GALARZA VERBALISED GOOD UNDERSTANDING OF WRITTEN AND VERBAL DISCHARGE INSTRUCTIONS. SHE WAS DISCHARGED HOME AT 1305, ESCORTED BY WHEELCHAIR TO MEET HER SON FOR RIDE HOME. TELEMETRY REMOVED AND PIV REMOVED BY FIRST GRADE TEACHER PRIOR TO DISCHARGE. PT REPORTED PAIN WAS UNDER CONTROL THIS AM. UP TO CHAIR AND BEDSIDE COMMODE. ROOM AIR TRIAL DONE BY RESP THERAPIST AND PT DISCHARGED ON ROOM AIR. SHE STILL HAD CONVERSATIONAL SOB AND SOB ON EXERTION THIS MORNING. PT DENIED CONCERNS OR QUESTIONS AT TIME OF DISCHARGE.
== END 2023-02-04 13:33 | disposition home or self-care (01) | DRG 597 ==
LOC: ER 18:12 → MEDS 02-02 01:35 → ENPENDDIS 02-04 12:00 → MEDS 02-04 13:33
PROVIDERS: Internal Medicine; Physician Assistant; Student in an Organized Health Care Education/Training Program; ADMIT Internal Medicine
PROC: 0W993ZZ Drainage of Right Pleural Cavity, Percutaneous Approach (ICD-10-PCS; principal; 2023-02-02)
DX: C50.919 Malignant neoplasm of unspecified site of unspecified female breast (principal); J96.01 Acute respiratory failure with hypoxia; I13.0 Hypertensive heart and chronic kidney disease with heart failure and stage 1 through stage 4 chronic kidney disease, or unspecified chronic kidney disease; Z68.41 Body mass index [BMI] 40.0-44.9, adult; I50.32 Chronic diastolic (congestive) heart failure; C38.4 Malignant neoplasm of pleura; K43.9 Ventral hernia without obstruction or gangrene; J44.9 Chronic obstructive pulmonary disease, unspecified; I48.91 Unspecified atrial fibrillation; G47.33 Obstructive sleep apnea (adult) (pediatric); E78.5 Hyperlipidemia, unspecified; F32.A Depression, unspecified; F41.9 Anxiety disorder, unspecified; E66.01 Morbid (severe) obesity due to excess calories; Z85.3 Personal history of malignant neoplasm of breast; Z79.899 Other long term (current) drug therapy; Z79.52 Long term (current) use of systemic steroids; Z79.890 Hormone replacement therapy; Z90.10 Acquired absence of unspecified breast and nipple; Z98.890 Other specified postprocedural states; Z88.5 Allergy status to narcotic agent; Z88.1 Allergy status to other antibiotic agents; Z11.52 Encounter for screening for COVID-19
CPT/HCPCS: 0241U; 32555; 36415; 71045; 71046; 80048; 80053; 83615; 83735; 83880; 84157; 84484; 85025; 85027; 85610; 87070; 87205; 89051; 93005; 93010; 93308; 93321; 94640; 94664; 94760; 94761; 96374; 99285-25; A9270; J1940; J2405; J2930

== ENCOUNTER 2023-05-14 04:53 | Emergency (ER) | payer OTHER ==
[~2023-05-14] VITALS: Ht 175.3 cm; Wt 108.9 kg
[~2023-05-14 04:53] MED LIST changes: +ACET500 PO; +ALBU90OI INH; +ASMANEX220 M14 INH; +MIRALAX17 GM PO; +SOAANZ40 M1 PO
[2023-05-14 08:30] VITALS: BP 134/86
--- NOTE | 2023-05-14 10:15 | NUR ---
"Spiritual Care | Comfort Care Referral | referred by Dr. Simmons Spiritual Care attempted, [facility]
--- NOTE | 2023-05-14 12:35 | NUR ---
MET WITH PATIENT IN THE ER. SHE REPORTED THAT SHE CAME TO THE HOSPITAL DUE TO UNCONTROLLED PAIN. SHE WAS TREATED FOR PAIN AND ANXIETY HERE AND SHE REPORTED THAT HER SYMPTOMS HAD RESOLVED. I SPOKE TO THE BEDSIDE RN WHO REPORTED THAT SHE WOULD BE TRANSFERED BACK TO [facility]. I CALLED ROSIE FROM THE [facility] TO DISCUSS THE PAINTIENT AND HER MEDICATIONS, COMPLIANCE ON HER REGIMINE AND COLABRATE ON SYMPTOM MANAGMENT.
== END 2023-05-14 10:22 ==
LOC: ER 04:53
DX: R07.9 Chest pain, unspecified (principal); M54.9 Dorsalgia, unspecified; R00.0 Tachycardia, unspecified; R41.0 Disorientation, unspecified; Z51.5 Encounter for palliative care; J44.9 Chronic obstructive pulmonary disease, unspecified; I48.91 Unspecified atrial fibrillation; I50.9 Heart failure, unspecified; Z79.899 Other long term (current) drug therapy; Z88.5 Allergy status to narcotic agent; Z88.6 Allergy status to analgesic agent; Z88.8 Allergy status to other drugs, medicaments and biological substances
CPT/HCPCS: A9270